=== PATIENT | male | born 1950 | race Caucasian/White ===

== ENCOUNTER → 2019-12-02 | Outpatient (CLI) | payer MEDICARE ==
--- NOTE | 2019-12-07 12:01 | SLEEPCENT ---
DATE OF PROCEDURE: 12/02/2019 ORDERED BY: Felisa Núñez NP Nocturnal polysomnography was performed for evaluation of sleep physiology in this patient with a history of excessive somnolence and nonrestorative sleep. 6 hours and 55 minutes of data were reviewed. There were 276 minutes of sleep identified. Sleep latency was mildly prolonged at 23 minutes. Rapid eye movement (REM) latency more so prolonged at 307 minutes. Sleep architecture showed fragmentation and poor progression. There was one REM cycle late in the study. Overall sleep efficiency was 67.9%. The patient's electrocardiogram showed atrial fibrillation with controlled ventricular response with rate of 80 beats per minute. EEG showed normal waveforms for awake and sleep. There 204 respiratory events identified of 10 seconds in duration or greater for an apnea-hypopnea index of 44.3. The events were primarily obstructive, not exclusive to sleep stage nor body posture. Arousals from respiratory events occurred 15.9 times per hour and oxygen desaturations fell into the 80s with some minimal limb activity and remaining measures of sleep physiology were normal. IMPRESSION: Obstructive sleep apnea syndrome (G47.33). Apnea-hypopnea index 44.3. RECOMMENDATIONS: The patient should be encouraged to return to sleep disorder center for pressure therapy. In the interim, alcohol and sedative avoidance should be practiced and caution exercised during operation of motor vehicles.
== END ==
LOC: M SLEEP 19:28
PROVIDERS: ATTEND Nurse Practitioner Family
DX: R06.83 Snoring (principal)

== ENCOUNTER → 2019-12-29 | Outpatient (CLI) | payer MEDICARE ==
--- NOTE | 2019-12-30 16:15 | SLEEPCENT ---
DATE OF PROCEDURE: 12/29/2019 ORDERED BY: JON Gonzalez Nocturnal polysomnography was performed for the titration of pressure therapy in this patient with obstructive sleep apnea syndrome. Apnea-hypopnea index of 44.3. For testing a [employer]Med Quattro full-face mask of large size was used; 4 cm of water pressure were applied to the circuit and the lights were extinguished. 7 hours and 19 minutes of data were reviewed. There were 343 minutes of sleep identified. Sleep latency was prolonged 21 minutes. Rapid eye movement (REM) latency was normal at 56.5 minutes. Sleep architecture was good with two REM cycles. Overall sleep efficiency 80%. The patient's electrocardiogram showed atrial fibrillation with an average ventricular response of 75 beats per minute. Electroencephalogram (EEG) showed normal waveforms for awake and sleep. Respiratory events were best palliated with CPAP at a pressure of +10. Some limb activity was appreciated. There were 3 trains of 30 events. Limb movement arousal index was 5.9. IMPRESSION: Obstructive sleep apnea syndrome (G47.33). RECOMMENDATIONS: Nightly use of pressure therapy 10 cm of water.
== END ==
LOC: M SLEEP 20:00
PROVIDERS: ATTEND Nurse Practitioner Family
DX: G47.33 Obstructive sleep apnea (adult) (pediatric) (principal)

== ENCOUNTER → 2020-06-04 | Outpatient (CLI) | payer MEDICARE | LOC: M LABSMTC 09:58 | PROVIDERS: ATTEND Internal Medicine Cardiovascular Disease | DX: Z11.59 Encounter for screening for other viral diseases (principal); Z20.828 Contact with and (suspected) exposure to other viral communicable diseases | CPT/HCPCS: C9803; U0003 ==

== ENCOUNTER → 2024-06-10 | Outpatient (CLI) | payer OTHER | LOC: M SLEEP 20:00 | PROVIDERS: ATTEND Nurse Practitioner Family | DX: G47.33 Obstructive sleep apnea (adult) (pediatric) (principal) ==